=== PATIENT | male | born 1945 | race Two or more races ===

== ENCOUNTER 2017-03-15 03:05 | Inpatient (IN) | payer MEDICARE, MEDICAID ==
[~2017-03-15] VITALS: Ht 167.6 cm; Wt 67.2 kg
[2017-03-15 04:07] LABS: Allen Test Yes; Base Excess 1.6 mmol/L (-2.0-2.0); Blood 02Sat 79.6 % (96-100); Blood COHb 0.7 % (0.5-1.5); HCO3 25.4 mmol/L (22-26.0); HHb 20.3 % (0.0-5.0); MODE ROOM AIR; PCO2(T) 36.2 mmHg (35.0-45.0); PO2 44.9 mmHg (80.0-100.0); PO2(T) 43.3 mmHg (80.0-100.0); Sample Type Arterial; pH 7.455 (7.350-7.450)
[2017-03-15 04:12] LABS: Basophils # (auto) 0.1 uL; Basophils % (auto) 0.8 % (0.0-2.0); Eosinophils # (auto) 0.3 uL; Eosinophils % (auto) 2.3 % (0.0-7.0); Hematocrit 34.4 % (41.0-53.0); Hemoglobin 11.3 g/dL (13.5-17.5); Lymphocytes # (auto) 0.9 uL; Lymphocytes % (auto) 6.3 % (10.0-50.0); Mean Corpuscular Hemoglobin 31.2 pg (28.0-32.0); Mean Corpuscular Volume 94.7 fL (80.0-100.0); Mean Platelet Volume 9.6 fL (6.9-10.8); Monocytes # (auto) 0.5 uL; Monocytes % (auto) 3.7 % (0.0-12.0); Neutrophils # (auto) 12.8 uL; Neutrophils % (auto) 86.9 % (37.0-80.0); Platelet Count (auto) 259 10^3/uL (140-450); Red Cell Distribution Width 14.6 % (11.8-14.3); White Blood Cell 14.7 10^3/uL (4.4-10.8)
[2017-03-15 04:29] LABS: INR 0.97 (0.9-1.15); Partial Thromboplastin Time 29.4 sec (22.64-33.71); Prothrombin Time 10.6 sec (9.37-12.3)
[2017-03-15 04:46] LABS: Albumin 3.9 g/dL (3.4-5.0); Alkaline Phosphatase 50 U/L (45-117); Anion Gap 12 (5-15); Aspartate Aminotransferase 8 U/L (15-37); BUN/Creatinine Ratio 5.4; Bilirubin, Total 0.6 mg/dL (0.2-1.0); Blood Urea Nitrogen 52 mg/dL (7-18); Calcium 9.1 mg/dL (8.5-10.1); Carbon Dioxide 25 mmol/L (21-32); Chloride 99 mmol/L (98-107); GFR African American 7 mL/min; GFR Non-African American 6 mL/min; Glucose 151 mg/dL (74-106); Magnesium 2.5 mg/dL (1.6-2.6); Potassium 4.2 mmol/L (3.5-5.1); Sodium 136 mmol/L (136-145); Total Protein 7.4 g/dL (6.4-8.2)
[2017-03-15] MEDS ORDERED: NITROGLYCERIN 0.4 MG SL TAB SL PRN (05:30)
[2017-03-15] MEDS ORDERED: MORPHINE SULF INJ 2 MG/ML SYRINGE 1ML IV PRN ×2 (05:30→06:15)
[2017-03-15 06:05] LABS: B-Type Natriuretic Peptide 880.68 pg/mL (0-100)
[2017-03-15] MEDS ORDERED: HYDROcodone-ACET 5/325MG TAB PO PRN (06:15)
[2017-03-15] MEDS ORDERED: ONDANSETRON HCL 4 MG/2 ML VIAL IV PRN (06:15)
[2017-03-15] MEDS ORDERED: ACETAMINOPHEN 500 MG TAB PO PRN (06:15)
[2017-03-15] MEDS ORDERED: CARV25TA55 PO (09:28)
[2017-03-15] MEDS ORDERED: TOPI25TA84 PO (09:28)
[2017-03-15] MEDS ORDERED: ATOR10TA52 PO (09:28)
[2017-03-15] MEDS ORDERED: CINA30TA2 PO (09:28)
[2017-03-15] MEDS ORDERED: HYDR-4298 PO (09:28)
[2017-03-15] MEDS ORDERED: BENA20TA14 PO (09:28)
[2017-03-15] MEDS ORDERED: PEN400T PO (09:28)
[2017-03-15] MEDS ORDERED: AMLO10TA2 PO (09:28)
[2017-03-15] MEDS ORDERED: CITA10TA59 PO (09:28)
[2017-03-15] MEDS ORDERED: CLON0.2T PO (09:28)
[2017-03-15] MEDS ORDERED: CARVEDILOL 3.125 MG TAB PO SCH (10:00)
[2017-03-15] MEDS: CITALOPRAM HYDROBR 20 MG TAB PO SCH (10:15)
[2017-03-15] MEDS: amLODIPine BESYLATE 5 MG TAB PO SCH (10:16)
[2017-03-15] MEDS ORDERED: hydrALAZINE HCL 20 MG/ML VL IV PRN (13:30)
[2017-03-15] MEDS: LEVOFLOXACIN 500MG 100 ML IV ONE ×2 (13:30→18:32)
[2017-03-15] MEDS ORDERED: SODIUM CHL 0.9% 1000 ML BAG XX ONE (13:30)
[2017-03-15 17:00] VITALS: BP 158/69
[2017-03-15] MEDS: CARVEDILOL 3.125 MG TAB PO SCH (21:42)
[2017-03-15] MEDS: ATORVASTATIN 20 MG TAB PO SCH (21:42)
[2017-03-15 22:00] VITALS: BP 143/65
[2017-03-16 05:00] VITALS: BP 138/65
[2017-03-16 06:47] LABS: Basophils # (auto) 0.1 uL; Basophils % (auto) 1.1 % (0.0-2.0); Eosinophils # (auto) 0.3 uL; Eosinophils % (auto) 4.1 % (0.0-7.0); Hematocrit 31.2 % (41.0-53.0); Hemoglobin 10.5 g/dL (13.5-17.5); Lymphocytes # (auto) 0.9 uL; Lymphocytes % (auto) 12.1 % (10.0-50.0); Mean Corpuscular Hemoglobin 31.8 pg (28.0-32.0); Mean Corpuscular Hgb Conc. 33.7 g/dL (32.0-36.0); Mean Corpuscular Volume 94.6 fL (80.0-100.0); Mean Platelet Volume 9.3 fL (6.9-10.8); Monocytes # (auto) 0.6 uL; Monocytes % (auto) 8.8 % (0.0-12.0); Neutrophils # (auto) 5.3 uL; Neutrophils % (auto) 73.9 % (37.0-80.0); Nucleated Red Blood Cells % 0.1 %; Platelet Count (auto) 218 10^3/uL (140-450); Red Cell Distribution Width 14.9 % (11.8-14.3); White Blood Cell 7.2 10^3/uL (4.4-10.8)
[2017-03-16 06:59] LABS: BUN/Creatinine Ratio 4.6; Calcium 8.7 mg/dL (8.5-10.1); Potassium 4.6 mmol/L (3.5-5.1)
[2017-03-16 08:00] VITALS: BP 140/72
[2017-03-16] MEDS: LEVOFLOXACIN 250MG 50 ML IV SCH (08:33)
[2017-03-16] MEDS: CARVEDILOL 3.125 MG TAB PO SCH ×2 (08:34→22:03)
[2017-03-16] MEDS: amLODIPine BESYLATE 5 MG TAB PO SCH (08:35)
[2017-03-16] MEDS: CITALOPRAM HYDROBR 20 MG TAB PO SCH (08:36)
[2017-03-16 09:00] VITALS: BP 140/72
[2017-03-16 09:05] LABS: Urine Bilirubin Negative (Negative); Urine Blood Negative /uL (Negative); Urine Color Yellow (Yellow); Urine Glucose 2+ mg/dL (Normal); Urine Ketone Negative (Negative); Urine Nitrite Negative (Negative); Urine RBC 2 /hpf (0 - 3); Urine Squamous Epithelial Cell FEW /hpf (<5); Urine Urobilinogen Normal (Negative); Urine pH 8.5 (5.0-8.0)
[2017-03-16 13:00] VITALS: BP 133/62
[2017-03-16] MEDS: guaiFENesin-DEXTROMETHORPHAN 5ML SYR PO PRN ×2 (15:34→22:04)
[2017-03-16 16:47] VITALS: BP 140/69
[2017-03-16 22:00] VITALS: BP 132/66
[2017-03-16] MEDS: ATORVASTATIN 20 MG TAB PO SCH (22:04)
[2017-03-17] VITALS (7 sets, daily range): BP systolic 126–142; BP diastolic 60–75
[2017-03-17] MEDS: guaiFENesin-DEXTROMETHORPHAN 5ML SYR PO PRN ×3 (04:45→21:31)
[2017-03-17] MEDS ORDERED: EPOETIN ALFA 3,000 UNIT/1 ML VIAL IV ONE (07:00)
[2017-03-17] MEDS ORDERED: SODIUM CHL 0.9% 1000 ML BAG XX ONE (07:00)
[2017-03-17] MEDS ORDERED: EPOETIN ALFA 2,000 UNIT/1 ML VIAL IV ONE (07:15)
[2017-03-17] MEDS: CITALOPRAM HYDROBR 20 MG TAB PO SCH (10:40)
[2017-03-17] MEDS: amLODIPine BESYLATE 5 MG TAB PO SCH (10:41)
[2017-03-17] MEDS: CARVEDILOL 3.125 MG TAB PO SCH ×2 (10:42→21:32)
[2017-03-17] MEDS: ATORVASTATIN 20 MG TAB PO SCH (21:31)
[2017-03-18 05:16] VITALS: BP 130/57
[2017-03-18] MEDS: guaiFENesin-DEXTROMETHORPHAN 5ML SYR PO PRN (06:43)
[2017-03-18 08:48] VITALS: BP 131/62
[2017-03-18] MEDS: CITALOPRAM HYDROBR 20 MG TAB PO SCH (09:37)
[2017-03-18] MEDS: LEVOFLOXACIN 250MG 50 ML IV SCH (09:37)
[2017-03-18] MEDS: CARVEDILOL 3.125 MG TAB PO SCH (09:38)
[2017-03-18] MEDS: amLODIPine BESYLATE 5 MG TAB PO SCH (09:38)
[2017-03-18 13:11] VITALS: BP 126/53
[2017-03-18] MEDS ORDERED: LEVO250T45 PO (13:46)
[2017-03-18 16:14] VITALS: BP 126/53
== END 2017-03-18 20:50 | disposition home or self-care (01) | DRG 177 ==
LOC: ER 03:07 → TELE 03:08 → TELE-WESTW 10:26
PROVIDERS: ADMIT Nurse Practitioner Family; ATTEND Internal Medicine
PROC: 5A1D70Z Performance of Urinary Filtration, Intermittent, Less than 6 Hours Per Day (ICD-10-PCS; principal; 2017-03-15)
PROC: 5A1D70Z Performance of Urinary Filtration, Intermittent, Less than 6 Hours Per Day (ICD-10-PCS; 2017-03-17)
DX: J15.5 Pneumonia due to Escherichia coli (principal); I50.33 Acute on chronic diastolic (congestive) heart failure; I13.2 Hypertensive heart and chronic kidney disease with heart failure and with stage 5 chronic kidney disease, or end stage renal disease; N17.9 Acute kidney failure, unspecified; N18.6 End stage renal disease; N25.81 Secondary hyperparathyroidism of renal origin; N39.0 Urinary tract infection, site not specified; E78.5 Hyperlipidemia, unspecified; I25.10 Atherosclerotic heart disease of native coronary artery without angina pectoris; D63.8 Anemia in other chronic diseases classified elsewhere; J40 Bronchitis, not specified as acute or chronic; R73.9 Hyperglycemia, unspecified; I25.2 Old myocardial infarction; Z95.1 Presence of aortocoronary bypass graft; Z82.49 Family history of ischemic heart disease and other diseases of the circulatory system; Z99.2 Dependence on renal dialysis; Z88.0 Allergy status to penicillin
CPT/HCPCS: 36415; 36600; 71010; 80048; 80053; 81001; 82805; 83036; 83735; 83880; 84484; 85025; 85610; 85730; 87070; 87077; 87081; 87086; 87186; 87205; 90935; 93005; J1642; J1956; Q4081

== ENCOUNTER 2017-06-11 08:51 | Inpatient (IN) | payer MEDICAID, MEDICARE ==
[~2017-06-11] VITALS: Ht 198.1 cm; Wt 66.6 kg
[~2017-06-11 08:51] MED LIST: AMLO10TA2 PO; ATOR10TA52 PO; BENA20TA14 PO; CARV25TA55 PO; CINA30TA2 PO; CITA10TA59 PO; CLON0.2T PO; HYDR-4298 PO; LEVO250T45 PO; PEN400T PO; TOPI25TA84 PO
[2017-06-11] MEDS ORDERED: ASPirin 81 mg TAB PO ONE (09:30)
[2017-06-11 09:40] LABS: Basophils # (auto) 0.1 uL; Basophils % (auto) 0.9 % (0.0-2.0); Eosinophils # (auto) 0.3 uL; Eosinophils % (auto) 3.9 % (0.0-7.0); Hematocrit 32.1 % (41.0-53.0); Hemoglobin 10.7 g/dL (13.5-17.5); Mean Corpuscular Hgb Conc. 33.3 g/dL (32.0-36.0); Monocytes # (auto) 0.6 uL; Monocytes % (auto) 8.7 % (0.0-12.0); Neutrophils # (auto) 4.7 uL; Neutrophils % (auto) 71.5 % (37.0-80.0); Nucleated Red Blood Cells % 0.2 %; Platelet Count (auto) 242 10^3/uL (140-450); Red Blood Cells 3.34 10^6/uL (4.5-5.90); Red Cell Distribution Width 15.9 % (11.8-14.3); White Blood Cell 6.6 10^3/uL (4.4-10.8)
[2017-06-11 09:55] LABS: Alanine Aminotransferase 16 U/L (16-61); Albumin 3.8 g/dL (3.4-5.0); Anion Gap 9 (5-15); Aspartate Aminotransferase 12 U/L (15-37); BUN/Creatinine Ratio 3.5; Blood Urea Nitrogen 11 mg/dL (7-18); Calcium 8.5 mg/dL (8.5-10.1); Carbon Dioxide 30 mmol/L (21-32); Chloride 95 mmol/L (98-107); GFR African American 25 mL/min; GFR Non-African American 21 mL/min; Glucose 96 mg/dL (74-106); Potassium 3.2 mmol/L (3.5-5.1); Sodium 134 mmol/L (136-145)
[2017-06-11 10:00] LABS: Alkaline Phosphatase 54 U/L (45-117); Bilirubin, Total 0.5 mg/dL (0.2-1.0); Total Protein 7.6 g/dL (6.4-8.2)
[2017-06-11 11:40] LABS: Urine Bacteria FEW /hpf (None Seen); Urine Blood Negative /uL (Negative); Urine Specific Gravity 1.008 (1.001-1.035); Urine WBC 210 /hpf (0 - 3)
[2017-06-11] MEDS ORDERED: POTASSIUM CHL 10% (20 MEQ/15ML) 15ml ORAL SOLN PO ONE (13:15)
[2017-06-11] MEDS ORDERED: NITROGLYCERIN 0.4 MG SL TAB SL PRN ×2 (15:30)
[2017-06-11] MEDS ORDERED: ONDANSETRON HCL 4 MG/2 ML VIAL IV PRN (15:30)
[2017-06-11] MEDS ORDERED: MORPHINE SULFATE 4 MG/ML SYR/VIAL IV PRN ×2 (15:30)
[2017-06-11] MEDS ORDERED: ALUM & MAG HYDROX-SIMETH LIQ(MAALOX) 30 ML PO ONE (15:30)
[2017-06-11] MEDS ORDERED: LORazepam 0.5 MG TAB PO PRN (15:30)
[2017-06-11] MEDS ORDERED: cloNIDine HCL 0.1 MG TAB PO PRN (15:30)
[2017-06-11] MEDS: CLOPIDOGREL BISULFATE 75 MG TAB PO SCH (16:13)
[2017-06-11 17:24] VITALS: BP 152/83
[2017-06-11] MEDS: SODIUM CHLOR 0.9% PF (SALINE LOCK) 10ML VIAL IV SCH (21:41)
[2017-06-11] MEDS: BENAZEPRIL HCL 10 MG TAB PO SCH (21:42)
[2017-06-11] MEDS: CARVEDILOL 12.5 MG TAB PO SCH (21:43)
[2017-06-11] MEDS: ATORVASTATIN 20 MG TAB PO SCH (21:43)
[2017-06-11] MEDS: hydrALAZINE HCL 25 MG TAB PO SCH (21:44)
[2017-06-11] MEDS: TOPIRAMATE 25 MG TAB PO SCH (21:44)
[2017-06-11] MEDS: ZOLPIDEM TARTRATE 5 MG TAB PO PRN (21:44)
[2017-06-11] MEDS: SULFAMETHOX W/TRIMETH(800/160MG) DS TAB PO SCH (21:48)
[2017-06-11 22:00] VITALS: BP 133/57
[2017-06-12 05:46] VITALS: BP 130/57
[2017-06-12] MEDS: SODIUM CHLOR 0.9% PF (SALINE LOCK) 10ML VIAL IV SCH ×3 (05:56→21:48)
[2017-06-12 07:51] LABS: Basophils # (auto) 0.1 uL; Basophils % (auto) 1.1 % (0.0-2.0); Eosinophils # (auto) 0.3 uL; Eosinophils % (auto) 5.1 % (0.0-7.0); Hematocrit 29.4 % (41.0-53.0); Hemoglobin 9.8 g/dL (13.5-17.5); Lymphocytes # (auto) 0.9 uL; Lymphocytes % (auto) 16.3 % (10.0-50.0); Mean Corpuscular Hemoglobin 32.2 pg (28.0-32.0); Mean Corpuscular Hgb Conc. 33.4 g/dL (32.0-36.0); Mean Corpuscular Volume 96.6 fL (80.0-100.0); Monocytes # (auto) 0.4 uL; Monocytes % (auto) 8.2 % (0.0-12.0); Neutrophils # (auto) 3.7 uL; Neutrophils % (auto) 69.3 % (37.0-80.0); Nucleated Red Blood Cells % 0.1 %; Platelet Count (auto) 210 10^3/uL (140-450); Red Blood Cells 3.04 10^6/uL (4.5-5.90); Red Cell Distribution Width 15.9 % (11.8-14.3); White Blood Cell 5.3 10^3/uL (4.4-10.8)
[2017-06-12 08:00] VITALS: BP 126/54
[2017-06-12 08:53] LABS: Albumin 3.4 g/dL (3.4-5.0); BUN/Creatinine Ratio 4.5; Bilirubin, Total 0.7 mg/dL (0.2-1.0); Calcium 8.5 mg/dL (8.5-10.1); Magnesium 2.3 mg/dL (1.6-2.6); Potassium 4.4 mmol/L (3.5-5.1); Total Protein 6.9 g/dL (6.4-8.2)
[2017-06-12 09:00] VITALS: BP 126/54
[2017-06-12] MEDS: SULFAMETHOX W/TRIMETH(800/160MG) DS TAB PO SCH ×2 (09:47→21:49)
[2017-06-12] MEDS: CLOPIDOGREL BISULFATE 75 MG TAB PO SCH (09:48)
[2017-06-12] MEDS: amLODIPine BESYLATE 5 MG TAB PO SCH (09:48)
[2017-06-12] MEDS: BENAZEPRIL HCL 10 MG TAB PO SCH ×2 (09:49→21:50)
[2017-06-12] MEDS: DOCUSATE SOD 100 MG CAP PO SCH (09:49)
[2017-06-12] MEDS: ASPirin 81 mg TAB PO SCH (09:49)
[2017-06-12] MEDS: PENTOXIFYLLINE 400 MG ER TAB PO SCH (09:50)
[2017-06-12] MEDS: hydrALAZINE HCL 25 MG TAB PO SCH ×2 (09:50→21:48)
[2017-06-12] MEDS: CARVEDILOL 12.5 MG TAB PO SCH ×2 (09:50→21:49)
[2017-06-12] MEDS: TOPIRAMATE 25 MG TAB PO SCH ×2 (09:51→21:51)
[2017-06-12] MEDS: CITALOPRAM HYDROBR 20 MG TAB PO SCH (09:51)
[2017-06-12] MEDS: CINACALCET HYDROCHLORIDE 30 MG TAB PO SCH (09:59)
[2017-06-12] MEDS ORDERED: PATIENTS OWN MEDICATION PO SCH (10:00)
[2017-06-12 13:00] VITALS: BP 135/58
[2017-06-12] MEDS ORDERED: cefTRIAXone 1GM/10ml IVPUSH 10 ML IV ONE (14:00)
[2017-06-12 17:16] VITALS: BP 104/47
[2017-06-12] MEDS ORDERED: guaiFENesin 200 MG/10 ML UD PO PRN (20:15)
[2017-06-12] MEDS: ACETAMINOPHEN 325 MG TAB PO PRN (20:17)
[2017-06-12] MEDS: ATORVASTATIN 20 MG TAB PO SCH (21:50)
[2017-06-12] MEDS: ZOLPIDEM TARTRATE 5 MG TAB PO PRN (21:51)
[2017-06-12 22:00] VITALS: BP 102/53
[2017-06-13] VITALS (7 sets, daily range): BP systolic 91–104; BP diastolic 45–52
[2017-06-13] MEDS: SODIUM CHLOR 0.9% PF (SALINE LOCK) 10ML VIAL IV SCH ×3 (05:59→22:10)
[2017-06-13] MEDS ORDERED: ADENOSINE 55 MG in GIVE UN-DILUTED 0 ML IV STA (08:18)
[2017-06-13] MEDS ORDERED: cefTRIAXone 1GM/10ml IVPUSH 10 ML IV SCH (09:00)
[2017-06-13] MEDS: CLOPIDOGREL BISULFATE 75 MG TAB PO SCH (10:41)
[2017-06-13] MEDS: CINACALCET HYDROCHLORIDE 30 MG TAB PO SCH (10:41)
[2017-06-13] MEDS: SULFAMETHOX W/TRIMETH(800/160MG) DS TAB PO SCH (10:41)
[2017-06-13] MEDS: hydrALAZINE HCL 25 MG TAB PO SCH ×2 (10:42→22:00)
[2017-06-13] MEDS: TOPIRAMATE 25 MG TAB PO SCH ×2 (10:42→22:12)
[2017-06-13] MEDS: ASPirin 81 mg TAB PO SCH (10:42)
[2017-06-13] MEDS: CARVEDILOL 12.5 MG TAB PO SCH ×2 (10:43→22:00)
[2017-06-13] MEDS: PENTOXIFYLLINE 400 MG ER TAB PO SCH (10:43)
[2017-06-13] MEDS: BENAZEPRIL HCL 10 MG TAB PO SCH ×2 (10:44→22:00)
[2017-06-13] MEDS: amLODIPine BESYLATE 5 MG TAB PO SCH (10:45)
[2017-06-13] MEDS: CITALOPRAM HYDROBR 20 MG TAB PO SCH (10:45)
[2017-06-13] MEDS: DOCUSATE SOD 100 MG CAP PO SCH (10:45)
[2017-06-13] MEDS: ACETAMINOPHEN 325 MG TAB PO PRN (20:20)
[2017-06-13] MEDS: ZOLPIDEM TARTRATE 5 MG TAB PO PRN (22:12)
[2017-06-13] MEDS: ATORVASTATIN 20 MG TAB PO SCH (22:12)
[2017-06-14 05:00] VITALS: BP 107/54
[2017-06-14] MEDS: SODIUM CHLOR 0.9% PF (SALINE LOCK) 10ML VIAL IV SCH ×2 (05:39→12:06)
[2017-06-14 08:00] VITALS: BP 165/53
[2017-06-14 08:37] VITALS: BP 105/53
[2017-06-14] MEDS ORDERED: ASPI81CH43 PO (09:15)
[2017-06-14] MEDS ORDERED: HEPARIN SODIUM (PORCINE) 5000 UNITS/ML 1ML VIAL IV ONE (09:45)
[2017-06-14] MEDS ORDERED: EPOETIN ALFA 4,000 UNIT/ML VL IV ONE (09:45)
[2017-06-14] MEDS ORDERED: EPOETIN ALFA 2,000 UNIT/1 ML VIAL IV ONE (10:00)
[2017-06-14] MEDS ORDERED: EPOETIN ALFA 3,000 UNIT/1 ML VIAL IV ONE (10:00)
[2017-06-14] MEDS: CITALOPRAM HYDROBR 20 MG TAB PO SCH (10:52)
[2017-06-14] MEDS: hydrALAZINE HCL 25 MG TAB PO SCH (10:52)
[2017-06-14] MEDS: DOCUSATE SOD 100 MG CAP PO SCH (10:52)
[2017-06-14] MEDS: ASPirin 81 mg TAB PO SCH (10:52)
[2017-06-14] MEDS: CARVEDILOL 12.5 MG TAB PO SCH (10:53)
[2017-06-14] MEDS: amLODIPine BESYLATE 5 MG TAB PO SCH (10:53)
[2017-06-14] MEDS: CLOPIDOGREL BISULFATE 75 MG TAB PO SCH (10:53)
[2017-06-14] MEDS: BENAZEPRIL HCL 10 MG TAB PO SCH (10:53)
[2017-06-14] MEDS: CINACALCET HYDROCHLORIDE 30 MG TAB PO SCH (10:53)
[2017-06-14] MEDS: PENTOXIFYLLINE 400 MG ER TAB PO SCH (10:54)
[2017-06-14] MEDS: TOPIRAMATE 25 MG TAB PO SCH (10:54)
[2017-06-14 11:36] VITALS: BP 131/61
[2017-06-14] MEDS: ACETAMINOPHEN 325 MG TAB PO PRN (14:52)
[2017-06-14 16:32] VITALS: BP 119/59
[2017-06-14 18:18] VITALS: BP 119/59
== END 2017-06-14 19:07 | disposition home or self-care (01) | DRG 193 ==
LOC: ER 08:51 → TELE 08:52 → TELE-WESTW 17:14
PROVIDERS: ADMIT Internal Medicine; ATTEND Internal Medicine
PROC: 5A1D70Z Performance of Urinary Filtration, Intermittent, Less than 6 Hours Per Day (ICD-10-PCS; principal; 2017-06-14)
DX: J18.9 Pneumonia, unspecified organism (principal); N18.6 End stage renal disease; I12.0 Hypertensive chronic kidney disease with stage 5 chronic kidney disease or end stage renal disease; I42.9 Cardiomyopathy, unspecified; I25.110 Atherosclerotic heart disease of native coronary artery with unstable angina pectoris; E87.1 Hypo-osmolality and hyponatremia; N25.81 Secondary hyperparathyroidism of renal origin; N39.0 Urinary tract infection, site not specified; E87.6 Hypokalemia; I73.9 Peripheral vascular disease, unspecified; D63.8 Anemia in other chronic diseases classified elsewhere; I25.2 Old myocardial infarction; Z82.49 Family history of ischemic heart disease and other diseases of the circulatory system; Z99.2 Dependence on renal dialysis; Z95.1 Presence of aortocoronary bypass graft; Z88.0 Allergy status to penicillin; Z88.8 Allergy status to other drugs, medicaments and biological substances
CPT/HCPCS: 36415; 71046; 78452; 80053; 80061; 81001; 83735; 83880; 84443; 84484; 85025; 87086; 90935; 93005; 93017; 93306; J0153; Q4081

== ENCOUNTER 2017-07-19 12:36 | Emergency (ER) | payer MEDICARE ==
[~2017-07-19] VITALS: Ht 167.6 cm; Wt 64.9 kg
[~2017-07-19 12:36] MED LIST changes: +ASPI81CH43 PO; -LEVO250T45 PO
[2017-07-19 15:00] VITALS: BP 153/61
== END 2017-07-19 15:03 | disposition home or self-care (01) ==
LOC: ER 12:48
DX: I83.91 Asymptomatic varicose veins of right lower extremity (principal); I10 Essential (primary) hypertension; I25.2 Old myocardial infarction; Z95.1 Presence of aortocoronary bypass graft; Z88.0 Allergy status to penicillin; Z88.6 Allergy status to analgesic agent; Z79.899 Other long term (current) drug therapy
CPT/HCPCS: 93971

== ENCOUNTER 2017-09-26 19:37 | Emergency (ER) | payer MEDICARE, MEDICAID ==
[~2017-09-26] VITALS: Ht 167.6 cm; Wt 63.5 kg
[2017-09-26 21:04] LABS: Basophils # (auto) 0.1 uL; Eosinophils # (auto) 0.2 uL; Eosinophils % (auto) 3.3 % (0.0-7.0); Hemoglobin 11.6 g/dL (13.5-17.5); Lymphocytes # (auto) 0.9 uL; Monocytes # (auto) 0.5 uL; Neutrophils # (auto) 5.4 uL; White Blood Cell 7.2 10^3/uL (4.4-10.8)
[2017-09-26 21:06] LABS: Basophils % (auto) 1.2 % (0.0-2.0); Lymphocytes % (auto) 12.8 % (10.0-50.0); Mean Corpuscular Hemoglobin 33.8 pg (28.0-32.0); Mean Corpuscular Hgb Conc. 33.2 g/dL (32.0-36.0); Mean Corpuscular Volume 101.6 fL (80.0-100.0); Neutrophils % (auto) 75.7 % (37.0-80.0); Nucleated Red Blood Cells % 0.2 %; Platelet Count (auto) 144 10^3/uL (140-450); Red Blood Cells 3.45 10^6/uL (4.5-5.90)
[2017-09-26 21:26] LABS: Albumin 3.4 g/dL (3.4-5.0); BUN/Creatinine Ratio 7.3; Bilirubin, Total 1.2 mg/dL (0.2-1.0); Calcium 9.1 mg/dL (8.5-10.1); Magnesium 2.8 mg/dL (1.6-2.6); Potassium 4.2 mmol/L (3.5-5.1)
[2017-09-26] MEDS ORDERED: KETOROLAC TROMETH 30 MG/ML 1ML VIAL IV ONE (23:45)
[2017-09-27 01:53] VITALS: BP 187/98
== END 2017-09-27 02:01 | disposition home or self-care (01) ==
LOC: ER 19:37
DX: I13.2 Hypertensive heart and chronic kidney disease with heart failure and with stage 5 chronic kidney disease, or end stage renal disease (principal); I50.9 Heart failure, unspecified; R60.0 Localized edema; N18.6 End stage renal disease; I25.810 Atherosclerosis of coronary artery bypass graft(s) without angina pectoris; I25.2 Old myocardial infarction; Z95.1 Presence of aortocoronary bypass graft
CPT/HCPCS: 36415; 71046; 80053; 83735; 83880; 84484; 85025; 93005; 93970

== ENCOUNTER 2017-11-11 13:00 | Emergency (ER) | payer MEDICARE, MEDICAID ==
[~2017-11-11] VITALS: Ht 157.5 cm; Wt 59.9 kg
[2017-11-11 13:35] VITALS: BP 167/70
[2017-11-11 13:48] LABS: Basophils # (auto) 0.1 uL; Basophils % (auto) 1.5 % (0.0-2.0); Eosinophils # (auto) 0.5 uL; Eosinophils % (auto) 7.8 % (0.0-7.0); Hematocrit 35.8 % (41.0-53.0); Hemoglobin 11.6 g/dL (13.5-17.5); Lymphocytes # (auto) 1.1 uL; Lymphocytes % (auto) 15.9 % (10.0-50.0); Mean Corpuscular Hemoglobin 32.6 pg (28.0-32.0); Mean Corpuscular Hgb Conc. 32.5 g/dL (32.0-36.0); Mean Corpuscular Volume 100.1 fL (80.0-100.0); Monocytes # (auto) 0.6 uL; Monocytes % (auto) 8.6 % (0.0-12.0); Neutrophils # (auto) 4.4 uL; Neutrophils % (auto) 66.2 % (37.0-80.0); Nucleated Red Blood Cells % 0.1 %; Platelet Count (auto) 179 10^3/uL (140-450); Red Blood Cells 3.57 10^6/uL (4.5-5.90); Red Cell Distribution Width 18.8 % (11.8-14.3); White Blood Cell 6.6 10^3/uL (4.4-10.8)
[2017-11-11 14:07] LABS: Albumin 3.5 g/dL (3.4-5.0); BUN/Creatinine Ratio 4.6; Bilirubin, Total 0.9 mg/dL (0.2-1.0); Calcium 9.2 mg/dL (8.5-10.1); Potassium 3.7 mmol/L (3.5-5.1); Total Protein 7.8 g/dL (6.4-8.2)
== END 2017-11-11 15:34 | disposition home or self-care (01) ==
LOC: ER 13:00
DX: I83.91 Asymptomatic varicose veins of right lower extremity (principal); I13.2 Hypertensive heart and chronic kidney disease with heart failure and with stage 5 chronic kidney disease, or end stage renal disease; I50.9 Heart failure, unspecified; N18.6 End stage renal disease; E11.22 Type 2 diabetes mellitus with diabetic chronic kidney disease; I25.2 Old myocardial infarction; I25.810 Atherosclerosis of coronary artery bypass graft(s) without angina pectoris; Z95.1 Presence of aortocoronary bypass graft; Z98.61 Coronary angioplasty status; Z88.0 Allergy status to penicillin; Z88.6 Allergy status to analgesic agent; Z79.82 Long term (current) use of aspirin; Z79.899 Other long term (current) drug therapy
CPT/HCPCS: 36415; 80053; 84484; 85025; 93971

== ENCOUNTER 2017-11-14 15:36 | Emergency (ER) | payer MEDICARE, MEDICAID ==
[~2017-11-14] VITALS: Ht 165.1 cm; Wt 59.9 kg
[2017-11-14 15:50] VITALS: BP 149/62
[2017-11-14] MEDS ORDERED: HYDROcodone-ACET 10/325MG TAB PO ONE (18:15)
== END 2017-11-14 18:39 | disposition left against medical advice (07) ==
LOC: ER 15:36
DX: I83.91 Asymptomatic varicose veins of right lower extremity (principal); E11.22 Type 2 diabetes mellitus with diabetic chronic kidney disease; I13.2 Hypertensive heart and chronic kidney disease with heart failure and with stage 5 chronic kidney disease, or end stage renal disease; N18.6 End stage renal disease; I25.2 Old myocardial infarction; I25.810 Atherosclerosis of coronary artery bypass graft(s) without angina pectoris; Z99.2 Dependence on renal dialysis; Z88.0 Allergy status to penicillin; Z88.6 Allergy status to analgesic agent